=== PATIENT | female | born 1955 | race Caucasian/White ===

== ENCOUNTER 2020-01-27 06:57 | Day surgery (SDC) | payer BC ==
[~2020-01-27 06:57] MED LIST: Midazolam 1 MG/ML 2 ML SDV ONE; fentaNYL 100 MCG/2 ML SDV ONE
[2020-01-27] MEDS ORDERED: fentaNYL 100 MCG/2 ML SDV IV ONE ×3 (06:58→08:23)
[2020-01-27] MEDS ORDERED: Midazolam 1 MG/ML 2 ML SDV IV ONE ×6 (06:58→08:27)
[2020-01-27] MEDS ORDERED: Lactated Ringers 1,000 ML IV SCH (07:30)
[2020-01-27] MEDS ORDERED: Dextrose 5%-0.45% NaCl 1,000 ML IV SCH (07:45)
--- NOTE | 2020-01-27 12:04 | OR ---
DATE: 01/27/2020 PREOPERATIVE DIAGNOSIS: Personal history of prior colon polyps and family history of cancer. POSTOPERATIVE DIAGNOSIS: Personal history of prior colon polyps and family history of cancer. PROCEDURE: Total colonoscopy with biopsy and tattoo of hepatic flexure lesion. ANESTHESIA: Conscious sedation with IV Versed and fentanyl. SPECIMEN: Biopsy. INDICATION FOR PROCEDURE: This 64-year-old female has a history of prior colon polyps and a family history of cancer. OPERATIVE FINDINGS: Significant sigmoid diverticulosis and probable polyp right at the hepatic flexure on one of the haustral folds. PROCEDURE IN DETAIL: After adequate preparation, a colonoscope was inserted into the rectum. This was easily passed all the way to the cecum. Right at the hepatic flexure, on one of the haustral valves is a polypoid-appearing sessile lesion. This probably is 1.5 to 2 cm in length along the fold. I think this would most likely need an EMR to excise this polyp and I do not have that equipment or expertise here at [facility]. I did biopsy this area to confirm that it is a polyp. It is not suspicious for a cancer. I did then inject 2 areas of black ink tattoo so that they can re-find this on a followup colonoscopy. The bowel prep was very good. I was able to see the cecum without difficulty. The only other abnormality on withdrawal of the scope was significant sigmoid diverticulosis. Anal and rectal examination are normal. Air was suctioned from the colon and the scope removed. [facility] /[id number]
== END 2020-01-27 10:40 | disposition home or self-care (01) ==
LOC: DL.ENDO 06:57
PROVIDERS: ATTEND Surgery
DX: Z12.11 Encounter for screening for malignant neoplasm of colon (principal); D12.3 Benign neoplasm of transverse colon; K57.30 Diverticulosis of large intestine without perforation or abscess without bleeding; Z01.812 Encounter for preprocedural laboratory examination; Z20.828 Contact with and (suspected) exposure to other viral communicable diseases; Z86.010 Personal history of colon polyps; Z98.890 Other specified postprocedural states
CPT/HCPCS: 45380; 45381; 87635; J2250; J3010; J7042; U0002